=== PATIENT | male | born 1970 | race Caucasian/White ===

== ENCOUNTER 2019-06-15 13:14 | Day surgery (SDC) | payer OTHER ==
[2019-06-15] MEDS ORDERED: Xylocaine 1% Vial 30 ML PF IJ ONE (13:15)
[2019-06-15] MEDS ORDERED: Xylocaine-Mpf 2% 5 Ml Vial IJ ONE (13:15)
[2019-06-15] MEDS ORDERED: Sensorcaine 0.25% 10 ML IJ ONE (13:15)
[2019-06-15] MEDS ORDERED: Lactated Ringers 1,000 ML IV ONE (13:59)
[2019-06-15] MEDS ORDERED: DIPRIVAN 200 MG/20 ML IV ONE (14:19)
[2019-06-15] MEDS ORDERED: Ketamine HCl 50 MG/ML ONE (14:20)
--- NOTE | 2019-06-15 16:37 | XRAY ---
21 seconds fluoroscopy time in surgery for left lumbar sympathetic Nerve block.
--- NOTE | 2019-06-16 07:04 | XRAY ---
Indication: Left lumbar sympathetic nerve block. Intraoperative fluoroscopy was provided for 21 seconds. Oblique and lateral digital spot images reveal a spinal needle tip to be projected over the upper anterior left margin of a lumbar vertebra. Some contrast has been injected for needle tip placement. Correlate with intraoperative findings/report.
== END 2019-06-15 14:57 | disposition home or self-care (01) ==
LOC: SDC-PAIN 13:14
PROVIDERS: ATTEND Psychiatry & Neurology Pain Medicine
DX: G90.522 Complex regional pain syndrome I of left lower limb (principal); M79.7 Fibromyalgia; J44.9 Chronic obstructive pulmonary disease, unspecified; D75.9 Disease of blood and blood-forming organs, unspecified; Z79.899 Other long term (current) drug therapy
CPT/HCPCS: 64520; 72020; 77002; J2001; J2704; Q9966

== ENCOUNTER 2019-08-10 12:01 | Day surgery (SDC) | payer OTHER ==
[2019-08-10] MEDS ORDERED: Xylocaine 1% Vial 30 ML PF IJ ONE (12:02)
[2019-08-10] MEDS ORDERED: Sensorcaine 0.25% 10 ML IJ ONE (12:02)
[2019-08-10] MEDS ORDERED: Xylocaine-Mpf 2% 5 Ml Vial IJ ONE (12:02)
[2019-08-10] MEDS ORDERED: Ketamine HCl 50 MG/ML ONE (13:32)
[2019-08-10] MEDS ORDERED: DIPRIVAN 200 MG/20 ML IV ONE ×2 (13:32→13:47)
--- NOTE | 2019-08-10 15:25 | XRAY ---
Indication: Right lumbar sympathetic nerve block. Intraoperative fluoroscopy was provided for 19 seconds. Single digital spot image submitted for interpretation demonstrates posterior needle tip projecting just anterior to unknown mid lumbar vertebral body. Small amount of contrast injected for needle tip placement. Correlate with intraoperative findings/report.
--- NOTE | 2019-08-10 15:27 | XRAY ---
19 seconds fluoroscopy time in surgery for right lumbar sympathetic nerve block.
[2019-08-10] MEDS ORDERED: Lactated Ringers 1,000 ML IV ONE (16:18)
== END 2019-08-10 14:12 | disposition home or self-care (01) ==
LOC: SDC-PAIN 12:01
PROVIDERS: ATTEND Psychiatry & Neurology Pain Medicine
DX: M54.16 Radiculopathy, lumbar region (principal); J44.9 Chronic obstructive pulmonary disease, unspecified; G90.50 Complex regional pain syndrome I, unspecified; M79.7 Fibromyalgia; D75.9 Disease of blood and blood-forming organs, unspecified; Z79.899 Other long term (current) drug therapy
CPT/HCPCS: 72020; 77002; J2001; J2704

== ENCOUNTER 2019-09-07 10:42 | Day surgery (SDC) | payer OTHER ==
[2019-09-07] MEDS ORDERED: Xylocaine-Mpf 2% 5 Ml Vial IJ ONE (10:43)
[2019-09-07] MEDS ORDERED: Marcaine MPF 0.25% 30 ML IJ ONE (10:43)
[2019-09-07] MEDS ORDERED: DIPRIVAN 200 MG/20 ML IV ONE ×2 (11:12→11:17)
[2019-09-07] MEDS ORDERED: Ketamine HCl 50 MG/ML ONE ×2 (11:12→11:17)
--- NOTE | 2019-09-07 13:27 | XRAY ---
Indication: Left lumbar sympathetic nerve block. Intraoperative fluoroscopy was provided for 36 seconds. 4 digital spot image submitted for interpretation demonstrates left posterior needle tip projecting just anterior to the L2 vertebral body. Small amount of contrast injected for needle tip placement. Correlate with intraoperative findings/report.
--- NOTE | 2019-09-07 13:39 | XRAY ---
36 seconds fluoroscopy time in surgery for left lumbar sympathetic nerve block.
[2019-09-07] MEDS ORDERED: Lactated Ringers 1,000 ML IV ONE (16:01)
== END 2019-09-07 11:45 | disposition home or self-care (01) ==
LOC: SDC-PAIN 10:42
PROVIDERS: ATTEND Psychiatry & Neurology Pain Medicine
DX: G90.522 Complex regional pain syndrome I of left lower limb (principal); M79.7 Fibromyalgia; J44.9 Chronic obstructive pulmonary disease, unspecified; D75.9 Disease of blood and blood-forming organs, unspecified; M19.90 Unspecified osteoarthritis, unspecified site; Z79.899 Other long term (current) drug therapy
CPT/HCPCS: 64520; 72020; 77002; J2704; Q9966